=== PATIENT | male | born 1950 | race Caucasian/White ===

== ENCOUNTER 2018-06-14 07:36 | Outpatient (CLI) | payer MEDICARE, BC ==
--- NOTE | 2018-06-14 11:25 | PET ---
PET SCAN FOR DEMENTIA: Date: 06/14/18 HISTORY: Dementia; Alzheimer's disease, early onset. TECHNIQUE: A PET CT was performed of the head using 13.82 mCi FDG. FINDINGS: There is decreased metabolic activity in the temporal lobes and parietal lobes, and to a lesser exten t the bilateral frontal lobes. Normal activity is seen within the occipital lobes and a strip in the anterior aspect of the parietal lobes. Normal uptake is seen in the basal ganglia. IMPRESSION: There is decreased metabolic activity within the bilateral temporal, bilateral frontal, and bilateral parietal lobes as above. POS: DEAN
== END 2018-06-14 07:37 | disposition home or self-care (01) ==
LOC: PET 07:36
PROVIDERS: ATTEND Psychiatry & Neurology Neurology
DX: G30.0 Alzheimer's disease with early onset (principal); E88.9 Metabolic disorder, unspecified
CPT/HCPCS: 78608; A9552